=== PATIENT | male | born 1995 | race Caucasian/White ===

== ENCOUNTER 2018-03-11 21:27 | Emergency (ER) | payer OTHER ==
[2018-03-11 21:53] VITALS: BP 139/74
[2018-03-11 22:20] LABS: BASOPHILS % (AUTO) 0.5 %; EOSINOPHILS # (AUTO) 0.1 10^3/uL (0.0-0.7); EOSINOPHILS % (AUTO) 1.6 %; LYMPHOCYTES # (AUTO) 1.6 10^3/uL (1.5-3.5); LYMPHOCYTES % (AUTO) 26.1 %; MEAN CORPUSCULAR HEMOGLOBIN 28.1 pg (27.0-31.0); MEAN CORPUSCULAR HGB CONC 33.4 g/dL (32.0-36.0); MEAN CORPUSCULAR VOLUME 84.3 fL (80.0-94.0); MEAN PLATELET VOLUME 9.1 fL (7.4-11.4); MONOCYTES # (AUTO) 0.4 10^3/uL (0.0-1.0); MONOCYTES % (AUTO) 6.7 %; NEUTROPHILS % (AUTO) 65.1 %; PLT - PLATELET COUNT 179 10^3/uL (130-450); RED BLOOD COUNT 5.33 10^6/uL (4.70-6.10); RED CELL DISTRIBUTION WIDTH 12.7 % (12.0-15.0); WHITE BLOOD COUNT 6.1 x10^3/uL (4.8-10.8)
--- NOTE | 2018-03-11 22:23 | ED Physician Documentation ---
PD HPI GI BLEED - Stated complaint Stated Complaint: BLOOD IN STOOL - Chief complaint Chief Complaint: Abd Pain - History obtained from History obtained from: Patient - History of Present Illness Timing - onset: Yesterday Timing - details: Abrupt onset, Intermittant Pain level max: 0 Pain level now: 0 Associated symptoms: BRBPR Similar symptoms before: Has not had sx before Recently seen: Not recently seen - Additional information Additional information: c/o bright red blood with BM since yesterday. denies pain, denies N/V, denies diarrhea/constipation. has not had similar problem in the past Review of Systems Constitutional: reports: Reviewed and negative Respiratory: denies: Dyspnea GI: reports: Bloody / black stool. denies: Abdominal Pain, Abdominal Swelling, Nausea, Vomiting, Constipation, Diarrhea PD PAST MEDICAL HISTORY - Past Medical History Past Medical History: No - Past Surgical History Past Surgical History: No - Present Medications Home Medications: Ambulatory Orders Medication Instructions Recorded Confirmed No Known Home Medications [No 03/11/18 03/11/18 Known Home Medications] - Allergies Allergies/Adverse Reactions: Allergies Allergy/AdvReac Type Severity Reaction Status Date / Time No Known Drug Allergies Allergy Verified 03/11/18 21:53 - Social History Does the pt smoke?: Yes Smoking Status: Current every day smoker Does the pt drink ETOH?: Yes Does the pt have substance abuse?: No - Immunizations Immunizations are current?: Yes - POLST Patient has POLST: No PD ED PE NORMAL - Vitals Vital signs reviewed: Yes - General General: Alert and oriented X 3, No acute distress, Well developed/nourished - Abdomen Abdomen: Normal bowel sounds, Soft, Non tender, Non distended, No organomegaly - Derm Derm: Normal color PD ED PE EXPANDED - Rectal Rectal: Heme Occult Pos - QC +. No: Mass, Hemorrhoid, Fissure Results - Vitals Vitals: Oxygen O2 Source Room air - Labs Labs: Laboratory Tests 03/11/18 03/11/18 03/11/18 22:15 22:15 22:15 WBC 6.1 RBC 5.33 Hgb 15.0 Hct 44.9 MCV 84.3 MCH 28.1 MCHC 33.4 RDW 12.7 Plt Count 179 MPV 9.1 Neut # (Auto) 4.0 Lymph # (Auto) 1.6 [place] # (Auto) 0.4 Eos # (Auto) 0.1 Baso # (Auto) 0.0 Absolute Nucleated RBC 0.00 Nucleated RBC % 0.1 PT 12.4 INR 1.1 APTT 26.9 Sodium 137 Potassium 3.7 Chloride 104 Carbon Dioxide 27 Anion Gap 6.0 BUN 11 Creatinine 1.0 Estimated GFR (MDRD) 94 Glucose 109 H Calcium 9.2 Total Bilirubin 0.6 AST 17 ALT 15 Alkaline Phosphatase 55 Total Protein 7.4 Albumin 4.2 Globulin 3.2 Albumin/Globulin Ratio 1.3 Lipase 31 PD MEDICAL DECISION MAKING - ED course Complexity details: reviewed results, re-evaluated patient, considered differential, d/w patient ED course: painless BRBPR, otherwise asymptomatic. reassuring blood tests, advised return if worse, f/u PMD for reevaluation - Sepsis Event Vital Signs: Oxygen O2 Source Room air Departure - Departure Disposition: 01 Home, Self Care Clinical Impression: Lower GI bleeding Condition: Good Instructions: ED Hemat[place]zia Stable Follow-Up: [facility] [Provider Group] Discharge Date/Time: 03/11/18 22:57
[2018-03-11 22:26] LABS: INR 1.1 (0.8-1.2); PT - PROTHROMBIN TIME 12.4 secs (9.9-12.6)
[2018-03-11 22:33] LABS: ALBUMIN 4.2 g/dL (3.2-5.5); ALBUMIN/GLOBULIN RATIO 1.3 (1.0-2.2); BILIRUBIN,TOTAL 0.6 mg/dL (0.2-1.0); CALCIUM 9.2 mg/dL (8.5-10.3); TOTAL PROTEIN 7.4 g/dL (6.7-8.2)
== END 2018-03-11 22:57 | disposition home or self-care (01) ==
LOC: ED 21:27
DX: K92.2 Gastrointestinal hemorrhage, unspecified (principal)
CPT/HCPCS: 36415; 80053; 83690; 85025; 85610; 85730; 99282; 99283